=== PATIENT | female | born 1970 | race Caucasian/White ===

== ENCOUNTER 2021-09-11 09:49 | Emergency (ER) | payer OTHER ==
[2021-09-11 10:35] LABS: BASOPHIL 0.5 % (0-2); EOSINOPHIL 3.1 % (0-5); HCT 41.3 % (37.0-47.0); HGB 13.4 g/dl (12.5-16.0); LYMPHOCYTE 26.8 % (15-48); MCH 30.4 pg (25.0-31.0); MCHC 32.4 g/dL (32.0-36.0); MCV 93.7 fL (78.0-100.0); MPV 9.7 fL (6.0-9.5); NEUTROPHIL 64.5 % (41-80); NRBC 0; PLT 258 K/uL (150-400); RBC 4.41 M/uL (4.20-5.40); RDW 12.6 % (11.5-14.0); WBC 8.1 K/uL (4.0-10.5)
[2021-09-11 10:59] LABS: ALBUMIN 3.9 g/dL (3.4-5.0); BILIRUBIN - TOTAL 0.2 mg/dL (0.2-1.0); BUN/CREAT RATIO (CALC) 17.9 RATIO; CREATININE 0.95 mg/dL (0.51-0.95); GLOBULIN (CALCULATION) 3.9 g/dL; POTASSIUM 3.7 mmol/L (3.5-5.1); TOTAL PROTEIN 7.8 g/dL (6.4-8.2)
[2021-09-11 11:33] LABS: INR 1.07 (0.9-1.2); PROTHROMBIN TIME 13.3 SECONDS (11.8-13.4); PTT 30.3 SECONDS (24.4-34.7)
== END 2021-09-11 13:23 | disposition home or self-care (01) ==
LOC: FER 09:49
PROVIDERS: Emergency Medicine
DX: R07.89 Other chest pain (principal); R20.2 Paresthesia of skin; I10 Essential (primary) hypertension; F17.210 Nicotine dependence, cigarettes, uncomplicated
CPT/HCPCS: 36415; 36600; 71045; 80053; 82803; 84484; 85025; 85379; 85610; 85730; 93005; J3490